=== PATIENT | male | born 1960 | race African-American/Black ===

== ENCOUNTER 2018-06-14 15:28 | Outpatient (CLI) | payer OTHER ==
--- NOTE | 2018-06-14 15:56 | RAD ---
LEFT HIP TWO VIEWS: History: Left hip pain. Comparison: 07-12-06 FINDINGS: Left hip prosthesis is in place without perihardware lucency. No acute fracture, dislocation, or aggr essive osseous erosions. IMPRESSION: No acute osseous abnormalities demonstrated. POS: [facility]
--- NOTE | 2018-06-14 15:58 | RAD ---
CHEST TWO VIEWS: History: Chest pain. FINDINGS: Cardiac silhouette and pulmonary vasculature are unremarkable. Mediastinum is midline. No confluent a irspace consolidation, pneumothorax, or pleural fluid. Degenerative changes of the thoracic spine on the lateral view. IMPRESSION: No active cardiopulmonary abnormalities are demonstrated. POS: [facility]
== END 2018-06-14 15:29 | disposition home or self-care (01) ==
LOC: BICRAD 15:28
PROVIDERS: ATTEND Internal Medicine
DX: Z02.71 Encounter for disability determination (principal)
CPT/HCPCS: 71046